=== PATIENT | female | born 1990 | race Caucasian/White ===

== ENCOUNTER 2020-02-04 06:00 | Inpatient (IN) ==
[2020-02-04] MEDS ORDERED: Lidocaine 1% 20 ML MDV INFILT PRN (06:22)
[2020-02-04] MEDS ORDERED: Metoclopramide 10 MG/2 ML VIAL IVP PRN (06:22)
[2020-02-04] MEDS ORDERED: Famotidine 20 MG/2 ML VIAL IVP PRN (06:22)
[2020-02-04] MEDS ORDERED: Naloxone 0.4 MG/ML INJ IVP PRN (06:22)
[2020-02-04] MEDS ORDERED: *HR* FentaNYL (PF) 100 MCG/2 ML VIAL IVP PRN (06:22)
[2020-02-04] MEDS ORDERED: Ondansetron 4 MG/2 ML VIAL IVP PRN (06:22)
[2020-02-04] MEDS ORDERED: miSOPROStoL 25 MCG TABLET VG PRN (06:24)
[2020-02-04] MEDS ORDERED: Oxytocin 20 units/ LR 1000 mL 20 UNIT/1,000 ML BAG IVC SCH ×2 (06:30→16:33)
[2020-02-04 06:54] LABS: Basophils # 0.1 K/mcL (0.0-0.2); Basophils % 0.8 %; Eosinophils # 0.2 K/mcL (0.0-0.6); Eosinophils % 1.7 %; Hematocrit 40.5 % (35.3-44.9); Hemoglobin 13.7 g/dL (11.5-15.4); Immature Granulocytes % 0.8 % (0-4); Lymphocytes # 2.9 K/mcL (0.6-4.6); Lymphocytes % 24.4 %; Mean Corpuscular HGB Conc 33.8 g/dL (31.6-35.5); Mean Corpuscular Volume 94.6 fL (83.0-100.0); Mean Platelet Volume 9.3 fL (9.4-12.4); Monocytes # 0.9 K/mcL (0.0-1.3); Monocytes % 7.6 %; Neutrophils # 7.7 K/mcL (1.6-8.9); Platelet Count 220 K/mcL (140-400); Red Blood Count 4.28 M/mcL (3.82-4.97); Segmented Neutrophils % 64.7 %; White Blood Count 11.9 K/mcL (4.3-11.1)
[2020-02-04 07:06] LABS: Amphetamine Screen,Urine Negative ng/mL (Cutoff=1000); Barbiturate Screen,Urine Negative ng/mL (Cutoff=200); Benzodiazepines Screen,Urine Negative ng/mL (Cutoff=300); Cannabinoid Screen,Urine Positive ng/mL (Cutoff = 50)
[2020-02-04 07:07] LABS: Cocaine Screen,Urine Negative ng/mL (Cutoff= 300); Opiate Screen,Urine Negative ng/mL (Cutoff=300); Phencyclidine Screen,Urine Negative ng/mL (Cutoff=25)
[2020-02-04] MEDS ORDERED: Bupivacaine-MPF 0.25% 10 ML VIAL EP ONE (08:42)
[2020-02-04] MEDS ORDERED: *HR* FentaNYL (PF) 100 MCG/2 ML VIAL EP ONE (08:42)
[2020-02-04] MEDS ORDERED: EPHEDrine 50 MG/ML VIAL IVP PRN (08:42)
[2020-02-04] MEDS ORDERED: Epidural Premix (fent/bupiv) 110 ML EP SCH (08:45)
[2020-02-04] MEDS ORDERED: *HR* FentaNYL (PF) 100 MCG/2 ML VIAL ONE ×2 (08:52→13:43)
[2020-02-04] MEDS: Ringers Solution, Lactated 1,000 ML IVC SCH ×2 (10:51→12:10)
[2020-02-04] MEDS ORDERED: Lanolin 7 G OINT...G. TP PRN (16:33)
[2020-02-04] MEDS ORDERED: Benzocaine/Menthol 56 GM AEROSOL SPRAY TP PRN (16:33)
[2020-02-04] MEDS: Ibuprofen 600 MG TABLET PO PRN (17:40)
[2020-02-04] MEDS: Acetaminophen 325 MG TABLET PO PRN (20:23)
[2020-02-05] MEDS: Ibuprofen 600 MG TABLET PO PRN (04:10)
[2020-02-05 07:57] VITALS: BP 103/68
[2020-02-05] MEDS: Acetaminophen 325 MG TABLET PO PRN (08:11)
[2020-02-05] MEDS ORDERED: Prenatal Vit/FA 1 EACH TABLET PO SCH (09:00)
== END 2020-02-05 14:30 | disposition home or self-care (01) | DRG 807 ==
LOC: 1NENULAB 06:09 → 1NENUOBS 16:29
PROVIDERS: ADMIT Registered Nurse; ATTEND Registered Nurse